=== PATIENT | female | born 1965 | race Caucasian/White ===

== ENCOUNTER 2018-06-30 20:08 | Inpatient (IN) | payer OTHER ==
[2018-06-30] MEDS ORDERED: EPINEPHRine HCL 1 mg/mL 1mL Amp IM STA (20:46)
[2018-06-30] MEDS ORDERED: EPINEPHRine HCL 1 mg/mL 1mL Amp ONE (20:47)
--- NOTE | 2018-06-30 21:40 | ED Physician Chart ---
ED Chief Complaint/HPI - Patient Information Date Seen:: 06/30/18 Time Seen:: 20:20 Chief Complaint:: hard to swallow & breathe History of Present Illness:: hard to swallow & breathe after exposure to ant spray. denies chest pain or shortness of breath. Allergies:: Allergies Allergy/AdvReac Type Severity Reaction Status Date / Time No Known Allergies Allergy Verified 06/30/18 20:44 Vitals:: Vital Signs - 8 hr 06/30/18 06/30/18 20:20 20:53 Temp 97.8 F HR 66 62 RR 18 BP 125/72 124/71 O2 Sat % 96 ED Review of Systems - Review of Systems General/Constitutional: No fever, No chills, No weight loss, No weakness, No diaphoresis, No edema, No loss of appetite Skin: No skin lesions, No rash, No bruising Head: No headache, No light-headedness Eyes: No loss of vision, No pain, No diplopia ENT: No earache, No nasal drainage, No sore throat, No tinnitus, Other ( dysphagia (hard to swallow saliva)) Neck: No neck pain, No swelling, No thyromegaly, No stiffness, No mass noted Cardio Vascular: No chest pain, No palpitations, No PND, No orthopnea, No edema Pulmonary: No SOB, No cough, No sputum, No wheezing GI: No nausea, No vomiting, No diarrhea, No pain, No melena, No hematochezia, No constipation, No hematemesis G/U: No dysuria, No frequency, No hematuria Musculoskeletal: No bone or joint pain, No back pain, No muscle pain Endocrine: No polyuria, No polydipsia Psychiatric: No prior psych history, No depression, No anxiety, No suicidal ideation Hematopoietic: No bruising, No lymphadenopathy Allergic/Immuno: No urticaria, No angioedema Neurological: No syncope, No focal symptoms, No weakness, No paresthesia, No headache, No seizure, No dizziness, No confusion, No vertigo ED Past Medical History - Past Medical History Obtainable: Yes Past Medical History: No significant medical hx Family Medical History - Family Member Mother History Unknown: Yes Ethnicity: ED Physical Exam - Physical Examination General/Constitutional: Awake, Well-developed, well-nourished, Alert, GCS 15, Non-toxic appearing, Ambulatory Other Gen/Cons comments:: in distress. her voice sounds slightly hoarse. she is having a hard time swallowing. Head: Atraumatic Eyes: Lids, conjuctiva normal, PERRL, EOMI Skin: Nl inspection, No rash, No skin lesions, No ecchymosis, Well hydrated, No lymphadenopathy ENMT: External ears, nose nl Other ENMT comments:: enlarged and swollen uvula. Neck: Nontender, Full ROM w/o pain, No JVD, No nuchal rigidity, No bruit, No mass, No stridor Respiratory: Nl effort/Exclusion, Clear to Auscultation, No Wheeze/Rhonchi/Rales Cardio Vascular: RRR, No murmur, gallop, rubs, NL S1 S2 GI: No tenderness/rebounding/guarding, No organomegaly, No hernia, Normal BS's, Nondistended, No mass/bruits, No McBurney tenderness : No CVA tenderness Extremities: No tenderness or effusion, Full ROM, normal strength in all extremities, No edema, Normal digits & nails Neuro/Psych: Alert/oriented, Normal sensory exam, Normal motor strength, Judgement/insight normal, Mood normal, Normal gait, No focal deficits Misc: Normal back, No paraspinal tenderness ED Assessment - Assessment General Assessment: EKG from 20:44:59 p.m. reveals normal sinus rhythm, flipped t wave in V1. Assessment/Comments:: patient feels better. she is drowsy. her uvula remains enlarged. Dr. Bradley was called or admit of this patient since her uvula remains enlarged. Her airway is patent and she is in no respiratory distress. Dr. Bradley gave us orders at 23:20 for admit to telemetry. ED Septic Shock - . Is Septic Shock (SBP<90, OR Lactate>4 mmol\L) present?: No - <6hrs of presentation: Vital Signs: Vital Signs - 8 hr 06/30/18 06/30/18 20:20 20:53 Temp 97.8 F HR 66 62 RR 18 BP 125/72 124/71 O2 Sat % 96 ED Reassessment (Disposition) - Reassessment Reassessment Condition:: Improved - Diagnosis Diagnosis:: Anaphylaxis Enlarged uvula - Patient Disposition Discharge/Transfer:: Acute Care w/in this hosp Admitted to:: Telemetry Condition at Disposition:: Stable, Improved
[2018-06-30 22:00] LABS: % BASOPHILS 0.3 % (0.0-2.0); EOSINOPHILE ABSOLUTE 0.2 Th/cmm (0.1-0.4); MEAN CORPUSCULAR HEMOGLOBIN 30.3 pg (27.0-31.0); MEAN PLATELET VOLUME 9.1 fl; MONOCYTE ABSOLUTE 1.3 Th/cmm (0.3-1.0); PLATELET COUNT 232 Th/cmm (150-400)
[2018-06-30 22:03] LABS: % EOSINOPHILS 1.2 % (0.0-5.0); % LYMPHOCYTES 44.6 % (20.0-50.0); % MONOCYTES 9.4 % (2.0-10.0); % NEUTROPHILS 44.5 % (40.0-80.0); HEMATOCRIT 37.6 % (41.0-60); HEMOGLOBIN 12.8 gm/dL (12-16); LYMPHOCYTE ABSOLUTE 6.4 Th/cmm (1.5-3.0); MEAN CELL VOLUME 88.8 fl (81-100); MEAN CORPUSCULAR HGB CONC 34.1 pg (28.0-36.0); NEUTROPHILE ABSOLUTE 6.3 Th/cmm (1.8-8.0); RED BLOOD COUNT 4.23 Mil/cmm (3.80-5.10); RED CELL DISTRIBUTION WIDTH 14.7 % (11.5-20.0); WHITE BLOOD COUNT 14.2 Th/cmm (4.8-10.8)
[2018-06-30 22:19] LABS: URINE SOURCE CLEAN C
[2018-06-30 22:21] LABS: ALB/GLOB RATIO 1.4 (1.0-1.8); ALBUMIN 4.2 gm/dL (3.7-5.3); ALKALINE PHOSPHATASE 76 U/L (34-104); ANION GAP 12.5 (7.0-16.0); BILIRUBIN,TOTAL 0.3 mg/dL (0.3-1.0); BUN - UREA NITROGEN 13 mg/dL (7-25); CALCIUM SERUM 9.3 mg/dL (8.6-10.3); CARBON DIOXIDE 21.3 mEq/L (21.0-31.0); CHLORIDE 106 mEq/L (98-107); CREATININE - SERUM 0.7 mg/dL (0.6-1.2); GFR AFRICAN-AMERICAN > 60.0 ml/min (>90); GFR NON AFRICAN-AMERICAN > 60.0 ml/min; GLUCOSE 163 mg/dL (70-105); MAGNESIUM 2.4 mg/dL (1.9-2.7); PHOSPHOROUS 2.1 mg/dL (2.5-5.0); SGOT 21 U/L (13-39); SGPT/ALT 29 U/L (7-52); SODIUM SERUM 137 mEq/L (136-145); TOTAL PROTEIN,SERUM 7.3 gm/dL (6.0-8.3)
[2018-06-30 22:23] LABS: POTASSIUM SERUM 2.8 mEq/L (3.5-5.1)
[2018-06-30 22:25] LABS: URINE BILIRUBIN NEGATIVE (NEGATIVE); URINE BLOOD NEGATIVE (NEGATIVE); URINE CLARITY CLEAR (CLEAR); URINE COLOR YELLOW; URINE GLUCOSE (UA) NEGATIVE (NEGATIVE); URINE KETONE NEGATIVE (NEGATIVE); URINE LEUKOCYTE ESTERASE NEGATIVE (NEGATIVE); URINE NITRATE NEGATIVE (NEGATIVE); URINE PROTEIN NEGATIVE (NEGATIVE); URINE UROBILINOGEN 0.2 E.U./dL (0.2 - 1.0)
[2018-06-30 22:26] LABS: URINE MICROSCOPIC INDICATED? YES
[2018-06-30 22:27] LABS: URINE BACTERIA FEW /hpf (NONE SEEN); URINE EPITHELIAL CELLS FEW /lpf (FEW); URINE RBC 0-2 /hpf (0-5)
[2018-06-30] MEDS ORDERED: Potassium Chloride Elixir 20 mEq /15 mL UDC GT ONE ×2 (23:16→23:19)
[2018-06-30] MEDS ORDERED: Potassium Chloride 20 mEq ER Tab PO ONE ×2 (23:24→23:56)
[2018-07-01] MEDS ORDERED: Acetaminophen 500 MG TAB PO PRN (01:22)
[2018-07-01] MEDS ORDERED: D5-0.45NS 1,000 ML IV SCH (01:22)
[2018-07-01 01:52] VITALS: BP 114/60
[2018-07-01] MEDS: Ampicillin Sodium/Sulbactam 1.5 GM in Sodium Chloride 0.9% 100 ML IV SCH ×3 (01:58→11:37)
[2018-07-01] MEDS ORDERED: Dexamethasone Sodium Phos 4 mg/mL Vial IVP SCH (05:00)
[2018-07-01 05:07] LABS: % EOSINOPHILS 0.1 % (0.0-5.0); % LYMPHOCYTES 10.7 % (20.0-50.0); % MONOCYTES 0.6 % (2.0-10.0); % NEUTROPHILS 88.6 % (40.0-80.0); HEMATOCRIT 37.4 % (41.0-60); HEMOGLOBIN 12.7 gm/dL (12-16); MEAN CELL VOLUME 89.6 fl (81-100); MEAN CORPUSCULAR HEMOGLOBIN 30.5 pg (27.0-31.0); MEAN PLATELET VOLUME 9.4 fl; MONOCYTE ABSOLUTE 0.1 Th/cmm (0.3-1.0); NEUTROPHILE ABSOLUTE 8.3 Th/cmm (1.8-8.0); PLATELET COUNT 228 Th/cmm (150-400); RED BLOOD COUNT 4.17 Mil/cmm (3.80-5.10); RED CELL DISTRIBUTION WIDTH 14.5 % (11.5-20.0)
[2018-07-01 05:10] LABS: WHITE BLOOD COUNT 9.4 Th/cmm (4.8-10.8)
[2018-07-01 05:48] LABS: ANION GAP 12.8 (7.0-16.0); BUN - UREA NITROGEN 11 mg/dL (7-25); CALCIUM SERUM 9.2 mg/dL (8.6-10.3); CARBON DIOXIDE 19.3 mEq/L (21.0-31.0); CHLORIDE 108 mEq/L (98-107); CREATININE - SERUM 0.6 mg/dL (0.6-1.2); GFR AFRICAN-AMERICAN > 60.0 ml/min (>90); GFR NON AFRICAN-AMERICAN > 60.0 ml/min; GLUCOSE 214 mg/dL (70-105); MAGNESIUM 2.2 mg/dL (1.9-2.7); POTASSIUM SERUM 4.1 mEq/L (3.5-5.1); SODIUM SERUM 136 mEq/L (136-145)
[2018-07-01 06:55] LABS: ESR SEDIMENTATION SED RATE 12 mm/hr (0-30)
[2018-07-01] MEDS ORDERED: Probiotic Screen MC PRN (12:08)
--- NOTE | 2018-07-01 13:16 | History & Physical ---
ADMIT DATE: 07/01/2018 CHIEF COMPLAINT: Difficulty swallowing, shortness of breath and sore throat. HISTORY OF PRESENT ILLNESS: The patient is a 52-year-old lady with no medical history, who was in her usual state of health until yesterday when she apparently was exposed to ant spray that was left behind on a counter top. The patient was not aware and got close to the counter and that is when she inhaled and started having the symptoms, namely painful swallowing, some shortness of breath and an episode of nausea and vomiting. Given the symptoms, she decided to come into the ED for further management and care. At the ED, she was noted to have an enlarged and swollen uvula and her white count was noted to be high at 14.2. She was given epinephrine and Solu-Medrol before been admitted to [facility] where she has been residing. PAST MEDICAL HISTORY: None. PAST SURGERIES: None listed. SOCIAL HISTORY: Denies any tobacco, ETOH or illicit drug usage. ALLERGIES: NKDA. MEDICATIONS: None current. REVIEW OF SYSTEMS: CONSTITUTIONAL: No fever or chills, no recent weight loss. CARDIOVASCULAR: Denies any chest pain or palpitations. HEAD AND NECK: Please refer to the HPI. She also had a brief episode of nasal stuffiness, but denies any recent upper respiratory symptomatology. CARDIAC: No chest pain, angina or palpitations. RESPIRATORY: Please refer to the HPI. GASTROINTESTINAL: No bowel habit changes except for one episode of nausea and vomiting. GENITOURINARY: No bladder habit changes. NEUROLOGIC: No changes in vision, no syncope, no headaches. PHYSICAL EXAMINATION: VITAL SIGNS: Temperature 98.1, pulse 81, respirations 18, BP 113/68, satting 98% on room air. GENERAL: She is a well-developed and well-nourished female, not in acute distress. HEAD AND NECK: Normocephalic, atraumatic. Pupils are reactive to light. Oropharynx currently appears to be clear with no lymphadenopathy noted. NECK: There is no JVD or LAD. CARDIAC: Regular rate and rhythm without any murmurs. LUNGS: Clear to auscultation bilaterally. ABDOMEN: Soft, supple, nontender, nondistended, normoactive bowel sounds. LOWER EXTREMITIES: No pedal edema. NEUROLOGIC: Grossly intact, nonfocal. LABORATORY DATA: White count 14.2 on admission, currently 9.4, otherwise within normal limits. Potassium 2.8, otherwise chemistry was within normal limits. Calcium 9.3. Liver function tests were normal and UA was essentially within normal limits. DIAGNOSTICS: None current. IMPRESSION: 1. Anaphylaxis secondary to insecticide exposure. 2. Enlarged uvula. 3. Leukocytosis. Differential would include secondary to inflammatory reaction vs. infection. PLAN: The patient has been admitted to tele for overnight observation and she appears to be much improved. She has been placed on Decadron 4 mg IV q. 8 hours, empiric IV antibiotics (Unasyn), and as noted above, she was given epinephrine and Solumedrol at the ED. She also was placed on IV fluids overnight and is currently tolerating a diet. Given her improvement, the patient will be discharged home to self-care. JOB# [id number] ALEX
[2018-07-01 19:25] LABS: A1C % 7.2 % (4.0-6.0)
--- NOTE | 2018-07-01 19:45 | Discharge Summary ---
DATE OF DISCHARGE: 07/01/2018 ADMITTING DIAGNOSES: 1. Anaphylaxis secondary to insecticide exposure. 2. Enlarged/inflamed uvula. 3. Leukocytosis, likely reactive. DISCHARGE DIAGNOSES: 1. Anaphylaxis secondary to insecticide exposure-clinically resolved. 2. Enlarged uvula - clinically improved. 3. Leukocytosis, likely reactive - resolved. CONSULTANTS: No consultants were used during this admission. MAJOR PROCEDURES: No major procedures were done during this admission. DISCHARGE MEDICATIONS: Prednisone 10 mg p.o. day x7 days. BRIEF HOSPITAL COURSE: The patient is a 52-year-old lady with no medical problems, was in her usual state of health until the day of admission when she inadvertently got exposed to ant spray that was left on a countertop. She began having difficulty breathing with a sore throat, nasal stuffiness and one episode of nausea and vomiting. She was transferred to the ED where, on physical exam, she was noted to have an enlarged and swollen uvula and on labs, she also had a white count of 14,000. Given these findings, the patient was admitted overnight to [facility] for observation. She was given epinephrine and Solu-Medrol at the ED with improvement in her symptoms and she was kept on IV Decadron and was placed on empiric IV antibiotics (Unasyn). She was given IV fluids and since been admitted. Her symptoms have subsided and she is able to tolerate her diet without any complaints. Since admission, she has had no episodes of dyspnea, sore throat or nausea/vomiting. CONDITION ON DISCHARGE: Stable. DISPOSITION: The patient was sent home to self-care. I instructed the patient to return to the ER if her symptoms return and I also instructed her to follow up with her primary care doctor in the next 2-5 days for followup. JOB# [id number] ALEX
== END 2018-07-01 12:45 | disposition home or self-care (01) | DRG 916 ==
LOC: ER 20:08 → TELE 23:20
PROVIDERS: ADMIT Internal Medicine; ATTEND Internal Medicine
DX: T88.6XXA Anaphylactic reaction due to adverse effect of correct drug or medicament properly administered, initial encounter (principal); D72.829 Elevated white blood cell count, unspecified; N90.60 Unspecified hypertrophy of vulva; Y92.89 Other specified places as the place of occurrence of the external cause
CPT/HCPCS: 36415-UA; 80048-TC; 80053-TC; 81001-TC; 82948-90; 83036-90; 83735-TC; 84100-TC; 85025-TC; 85652-TC; 86141-TC; 93005; 96374; 96375; J0171; J0295; J1100; J1200; J2930; J3490